=== PATIENT | female | born 1945 | race Caucasian/White ===

== ENCOUNTER 2022-12-01 09:21 | Emergency (ER) | payer OTHER ==
[2022-12-01] MEDS ORDERED: Ondansetron PF 4 MG/2 ML Vial ONE (11:16)
[2022-12-01] MEDS ORDERED: Sodium Chloride 0.9% 1,000 ML ONE (11:16)
[2022-12-01 11:21] LABS: #Eosinphils 0.1 thou/uL (0.0-0.7); #Lymphocytes 1.4 thou/uL (1.20-3.40); #Monocytes 0.4 thou/uL (0.11-0.59); #Neutrophils 6.2 thou/uL (1.40-6.50); %Basophils 0.6 % (0.0-1.0); %Eosinophils 1.2 % (0.0-10.0); %Lymphocytes 17.6 % (21.0-51.0); %Monocytes 4.7 % (0.0-10.0); %Neutrophils 75.9 % (42.0-75.0); Hematocrit 31.7 % (36.0-47.0); Hemoglobin 10.4 g/dL (12.0-16.0); Mean Corpuscular HGB CONC 32.9 g/dL (32.0-36.0); Mean Corpuscular Hemoglobin 33.8 pg (27.0-31.0); Mean Corpuscular Volume 102.9 fl (78.0-98.0); Mean Platelet Volume 7.3 fL (7.4-10.4); Platelet Count 213 10x3/uL (130-400); RBC Distribution Width 14.7 % (11.5-14.5); Red Blood Cell (RBC) Count 3.08 mill/uL (4.20-5.40); White Blood Cell (WBC) Count 8.2 10x3/uL (4.8-10.8)
[2022-12-01 11:41] LABS: Bilirubin Negative (Negative); Blood, Urine Trace (Negative); Clarity Clear (Clear); Glucose, Urine (Dipstick) 250 mg/dL (Negative); Ketone, Urine Negative (Negative); Leukocyte Negative (Negative); Nitrite Negative (Negative); Protein, Urine (Dipstick) 100 mg/dL (Neg-Trace); Urobilinogen 0.2 mg/dL (Less than 2); pH, Urine 7.5 (5.0-9.0)
[2022-12-01 11:48] LABS: Bacteria/HPF Rare-Few HPF (None Seen); CAUTI Indications for Culture Pelvic or flank pain; RBC/HPF 0-3 HPF (0-3); WBC/HPF 0-3 HPF (0-3)
[2022-12-01 11:49] LABS: Urine Culture Reflex No No
[2022-12-01 11:51] LABS: SARS-CoV-2 NAA Rapid Test Not Detected (NotDetected)
[2022-12-01 11:54] LABS: Phosphorus 4.7 mg/dL (2.3-4.7)
[2022-12-01 11:56] LABS: ALT (SGPT) 8 U/L (8-55); AST (SGOT) 12 U/L (5-34); Albumin 2.9 g/dL (3.4-4.8); Alkaline Phosphatase 58 U/L (40-110); Anion Gap 15 mmol/L (10-20); BUN (Urea Nitrogen) 40 mg/dL (9.8-20.1); Bilirubin, Total 0.3 mg/dL (0.2-1.2); Calc. Creatinine Clearance 0 mL/min (70-130); Carbon Dioxide 16 mmol/L (23-31); Chloride 114 mmol/L (98-107); Estimated GFR 7; Globulin 2.6 g/dL (2.4-3.5); Glucose 131 mg/dL (83-110); Magnesium 1.2 mg/dL (1.6-2.6); Potassium 4.1 mmol/L (3.5-5.1); Protein, Total 5.5 g/dL (5.8-8.1); Sodium 141 mmol/L (136-145)
[2022-12-01] MEDS ORDERED: Magnesium 2 GM/50 ML BAG (IN WATER) ONE (12:43)
== END 2022-12-01 14:10 | disposition home or self-care (01) ==
LOC: MADERS 09:21
DX: S12.090A Other displaced fracture of first cervical vertebra, initial encounter for closed fracture (principal); E11.22 Type 2 diabetes mellitus with diabetic chronic kidney disease; N18.6 End stage renal disease; R05.3 Chronic cough; R11.2 Nausea with vomiting, unspecified; E83.42 Hypomagnesemia; Z99.2 Dependence on renal dialysis; X58.XXXA Exposure to other specified factors, initial encounter; Z20.822 Contact with and (suspected) exposure to COVID-19
CPT/HCPCS: 71045; 72040; 80053; 81001; 83605; 83735; 83880; 84100; 85025; 85610; 87205; 96365; 96375; 99284; U0002; 87070; J2405; J3475; J7050

== ENCOUNTER 2023-01-18 20:00 | Emergency (ER) | payer OTHER ==
[~2023-01-18 20:00] MED LIST: Lactated Ringer's 1,000 ML BAG ONE
[2023-01-18 21:14] LABS: #Eosinphils 0.1 thou/uL (0.0-0.7); #Lymphocytes 2.4 thou/uL (1.20-3.40); #Monocytes 0.7 thou/uL (0.11-0.59); #Neutrophils 5.1 thou/uL (1.40-6.50); %Basophils 0.5 % (0.0-1.0); %Eosinophils 1.5 % (0.0-10.0); %Monocytes 8.4 % (0.0-10.0); %Neutrophils 60.5 % (42.0-75.0); Hematocrit 42.7 % (36.0-47.0); Hemoglobin 12.8 g/dL (12.0-16.0); Mean Corpuscular Hemoglobin 30.1 pg (27.0-31.0); Mean Corpuscular Volume 100.3 fl (78.0-98.0); Platelet Count 225 10x3/uL (130-400); RBC Distribution Width 16.5 % (11.5-14.5); Red Blood Cell (RBC) Count 4.26 mill/uL (4.20-5.40); White Blood Cell (WBC) Count 8.4 10x3/uL (4.8-10.8)
[2023-01-18] MEDS ORDERED: Dicyclomine 10 MG CAP ONE (21:30)
[2023-01-18] MEDS ORDERED: Ipratropium/Albuterol 3 ML NEB ONE ×2 (21:30→21:32)
[2023-01-18] MEDS ORDERED: Prochlorperazine 10 MG/2 ML VIAL ONE (21:30)
[2023-01-18] MEDS ORDERED: LevoFLOXacin 750 mg/D5W 150 ml Premix Bag ONE (21:30)
[2023-01-18] MEDS ORDERED: methylPREDNISolone Sod Succ/PF 125 MG/2 ML VIAL ONE (21:30)
[2023-01-18 21:35] LABS: ALT (SGPT) Less than 7 U/L (8-55); AST (SGOT) 12 U/L (5-34); Albumin 3.5 g/dL (3.4-4.8); Alkaline Phosphatase 103 U/L (40-110); Anion Gap 22 mmol/L (10-20); BUN (Urea Nitrogen) 46 mg/dL (9.8-20.1); Bilirubin, Total 0.3 mg/dL (0.2-1.2); Calc. Creatinine Clearance 0 mL/min (70-130); Calcium 8.7 mg/dL (7.8-10.44); Carbon Dioxide 21 mmol/L (23-31); Chloride 101 mmol/L (98-107); Estimated GFR 6; Globulin 3.4 g/dL (2.4-3.5); Glucose 201 mg/dL (83-110); Potassium 4.9 mmol/L (3.5-5.1); Protein, Total 6.9 g/dL (5.8-8.1); Sodium 139 mmol/L (136-145)
[2023-01-18 21:36] LABS: Troponin I 0.066 ng/mL (< 0.028)
[2023-01-18] MEDS ORDERED: Aspirin Chewable 81 MG TAB ONE (21:36)
[2023-01-18] MEDS ORDERED: Aspirin 325 MG TAB ONE (21:36)
[2023-01-18 23:31] LABS: Bilirubin Negative (Negative); Blood, Urine Small (Negative); Clarity Turbid (Clear); Glucose, Urine (Dipstick) 100 mg/dL (Negative); Ketone, Urine Negative (Negative); Leukocyte Trace (Negative); Nitrite Negative (Negative); Protein, Urine (Dipstick) > or equal to 300 mg/dL (Neg-Trace); Specific Gravity, Urine 1.025 (1.005-1.030); Urobilinogen 0.2 mg/dL (Less than 2)
[2023-01-18 23:34] LABS: Bacteria/HPF 4+ HPF (None Seen); CAUTI Indications for Culture Fever or rigors; WBC/HPF Greater than 50 HPF (0-3)
[2023-01-18 23:35] LABS: Urine Culture Reflex Yes Yes
[2023-01-19 00:47] LABS: SARS-CoV-2 NAA Rapid Test Not Detected (NotDetected)
== END 2023-01-19 00:29 | disposition short-term general hospital (02) ==
LOC: MADERS 20:00
DX: N39.0 Urinary tract infection, site not specified (principal); J18.1 Lobar pneumonia, unspecified organism; R79.89 Other specified abnormal findings of blood chemistry; E11.22 Type 2 diabetes mellitus with diabetic chronic kidney disease; N18.6 End stage renal disease; Z99.2 Dependence on renal dialysis; Z20.822 Contact with and (suspected) exposure to COVID-19
CPT/HCPCS: 0240U; 71045; 80053; 81001; 83605; 84484; 85025; 87040; 87077; 87086; 87149 ×2; 87186; 93005; 96365; 96375; J0780; J1956; J2930; J7120; J7620